=== PATIENT | male | born 1950 | race Caucasian/White ===

== ENCOUNTER 2021-04-25 10:25 | Outpatient (CLI) | payer MEDICARE, SELFPAY ==
[2021-04-25 10:44] VITALS: BP 117/66; PULSE 68; RESP 16; TEMP 37; O2SAT 97; BMI 27.2
[2021-04-25 11:25] VITALS: BP 106/68; PULSE 59; RESP 15; O2SAT 99
[2021-04-25 12:17] VITALS: BP 102/68; PULSE 58; RESP 18; TEMP 36.9; O2SAT 99
== END 2021-04-25 10:26 | disposition home or self-care (01) ==
PROVIDERS: PCP Nurse Practitioner; Visit Provider Nurse Practitioner Family
DX: U07.1 COVID-19 (principal)
CPT/HCPCS: 96365

== ENCOUNTER → 2021-08-22 11:11 | Outpatient (BNVA) | payer MEDICARE, SELFPAY | PROVIDERS: Visit Provider Family Medicine | DX: R53.83 Other fatigue (principal); Z76.89 Persons encountering health services in other specified circumstances | CPT/HCPCS: 80053; 80061; 84153; 84443; 85025 ==